=== PATIENT | male | born 1995 | race Caucasian/White ===

== ENCOUNTER 2020-08-01 13:56 | Emergency (ER) | payer SELFPAY ==
[2020-08-01 14:32] LABS: #Basophils 0.1 thou/uL (0.0-0.2); #Eosinphils 0.1 thou/uL (0.0-0.7); #Monocytes 0.7 thou/uL (0.11-0.59); #Neutrophils 8.7 thou/uL (1.40-6.50); %Basophils 1.1 % (0.0-1.0); %Eosinophils 1.2 % (0.0-10.0); %Lymphocytes 17.3 % (21.0-51.0); %Monocytes 5.7 % (0.0-10.0); %Neutrophils 74.7 % (42.0-75.0); Hemoglobin 16.4 g/dL (14.0-18.0); Mean Corpuscular HGB CONC 33.1 g/dL (32.0-36.0); Mean Corpuscular Volume 93.8 fL (78.0-98.0); Mean Platelet Volume 9.9 fL (7.4-10.4); Platelet Count 188 thou/uL (130-400); RBC Distribution Width 11.3 % (11.5-14.5); White Blood Cell (WBC) Count 11.7 thou/uL (4.8-10.8)
[2020-08-01 14:48] LABS: ALT (SGPT) 19 U/L (8-55); AST (SGOT) 23 U/L (5-34); Albumin 4.3 g/dL (3.5-5.0); Alkaline Phosphatase 71 U/L (40-110); Anion Gap 15 mmol/L (10-20); BUN (Urea Nitrogen) 15 mg/dL (8.9-20.6); Bilirubin, Total 0.6 mg/dL (0.2-1.2); Calc. Creatinine Clearance 0 mL/min (70-130); Calcium 8.8 mg/dL (7.8-10.44); Carbon Dioxide 23 mmol/L (22-29); Chloride 104 mmol/L (98-107); Globulin 2.3 g/dL (2.4-3.5); Glucose 79 mg/dL (70-105); Potassium 3.8 mmol/L (3.5-5.1); Protein, Total 6.6 g/dL (6.0-8.3); Sodium 138 mmol/L (136-145)
--- NOTE | 2020-08-01 15:59 | CT ---
BRAIN CT WITHOUT IV CONTRAST: History: Injury from trauma. FINDINGS: No focal mass or midline shift. Minimal motion artifact lowers the sensitivity of this study. No mass effect or midline shift. No intra or extraaxial hemorrhage. Sinuses and mastoids show no evidence fo r acute process. IMPRESSION: No significant acute intracranial process. No mass or bleed. POS: RRE
--- NOTE | 2020-08-01 16:02 | CT ---
CERVICAL SPINE CT SCAN WITHOUT IV CONTRAST: History: Injury from trauma. FINDINGS: No evidence for acute cervical spine fracture or dislocation. No significant malalignment. No prevert ebral soft tissue swelling. IMPRESSION: No cervical spine fracture or dislocation. POS: RRE
--- NOTE | 2020-08-01 17:13 | CT ---
CHEST, ABDOMEN, AND PELVIC CT SCAN WITH IV CONTRAST THORACIC SPINE CT SCAN WITH IV CONTRAST LUMBAR SPINE CT SCAN WITH IV CONTRAST: History: Injury from trauma. FINDINGS: CHEST, ABDOMEN, AND PELVIC CT SCAN: No evidence for pneumothorax or pleural effusion. No mediastinal hematoma. No evidence for pulmonary or parenchymal process. The liver and spleen demonstrate artifact through this region because the patient's arms overly the p atient's side. Too small to characterize low attenuation focus in the right lobe of the liver, statis tically a very small cyst. Gallbladder and common bile duct appear unremarkable. The pancreas appears unremarkable. Adrenal glands are unremarkable. The kidneys show no evidence of hydronephrosis. No so lid or cystic mass or evidence for hematoma. No evidence for free intraperitoneal hemorrhage or retro peritoneal hematoma. No CT evidence for acute appendicitis. The urinary bladder appears unremarkable. IMPRESSION: No significant acute post traumatic process in the chest, abdomen, or pelvis. THORACIC SPINE CT SCAN WITH IV CONTRAST: IMPRESSION: No fracture, dislocation, or other significant acute process. LUMBAR SPINE CT SCAN WITH IV CONTRAST: IMPRESSION: No fracture, dislocation, or other acute process. POS: RRE
== END 2020-08-01 16:50 | disposition home or self-care (01) ==
LOC: MADERS 13:56
DX: S20.212A Contusion of left front wall of thorax, initial encounter (principal); Z87.09 Personal history of other diseases of the respiratory system; V59.9XXA Occupant (driver) (passenger) of pick-up truck or van injured in unspecified traffic accident, initial encounter
CPT/HCPCS: 36415; 70450; 71260; 72125; 74177; 80053; 85025